=== PATIENT | male | born 1930 | race Caucasian/White ===

== ENCOUNTER 2016-10-12 11:15 | Emergency (ER) | payer OTHER ==
[~2016-10-12] VITALS: Ht 175.3 cm; Wt 67.1 kg
[~2016-10-12 11:15] MED LIST: BRIMONIDINE TAR15 ML BOTH EYES; GLUCOTROL5 MG PO; LEVOTHROID,SYN0.1 MG PO; METFORMIN HCL500 M1 PO; PLAVIX75 MG PO; XALATAN 0.50 DROP/2. BOTH EYES; ZANTAC150 MG PO; ZESTRIL5 MG PO
[2016-10-12 11:51] LABS: POINT-OF-CARE METER ID UU14100415
[2016-10-12 12:33] LABS: HEMATOCRIT 36.2 % (38.0-50.0); MCH 30.5 PG (29.0-34.0); MCHC 33.1 G/DL (30.0-36.0); MCV 91.9 FL (86-99); RBC DIS.WIDTH-CV 12.6 % (11.8-14.6); RBC DIS.WIDTH-SD 42.6 % (39-53); RED BLOOD COUNT 3.94 M/uL (4.00-5.50); WHITE BLOOD COUNT 8.2 K/uL (4.1-10.2)
[2016-10-12 12:45] LABS: CHLORIDE 105 mEq/L (99-109); POTASSIUM 5.8 mEq/L (3.7-5.4); SODIUM 136 mEq/L (136-147)
[2016-10-12 12:47] LABS: GLUCOSE 281 mg/dL (70-99)
[2016-10-12 12:48] LABS: ANION GAP 8 MEQ/L (2-14)
[2016-10-12 12:51] LABS: GFR ESTIMATE (CALCULATED) 47 mL/min/; UREA NITROGEN (BUN) 40 mg/dL (9-23)
[2016-10-12 12:56] LABS: TROP-I INTERPRETATION NEGATIVE; TROPONIN-I < 0.01 ng/mL (0.0-0.30)
[2016-10-12 13:27] LABS: ADD MIUA? NO; BILIRUBIN NEGATIVE; BLOOD NEGATIVE; COLOR YELLOW ((YELLOW)); GLUCOSE (STRIP) >=500; KETONES NEGATIVE; LEUKOCYTES NEGATIVE; NITRITE NEGATIVE; PROTEIN (STRIP) NEGATIVE; SPECIFIC GRAVITY 1.006 (1.000-1.030); UCUL ADDED? NO; UROBILINOGEN 0.2 MG/DL (0.2-1.0)
[2016-10-12 13:43] LABS: IMM.PLATELET FRACTION 10.2 (1-7); MEAN PLAT.VOLUME 12.3 uM^3 (9.0-12.4); PLAT.SUFFICIENCY DECREASED; PLATELET COUNT 46 K/uL (156-360)
[2016-10-12 14:55] VITALS: BP 145/66
== END 2016-10-12 14:56 | disposition home or self-care (01) ==
LOC: EME 11:15
PROVIDERS: Emergency Medicine
DX: E11.65 Type 2 diabetes mellitus with hyperglycemia (principal); D69.6 Thrombocytopenia, unspecified; E87.5 Hyperkalemia; R42 Dizziness and giddiness; I10 Essential (primary) hypertension; I45.10 Unspecified right bundle-branch block; E03.9 Hypothyroidism, unspecified; Z95.0 Presence of cardiac pacemaker; Z79.84 Long term (current) use of oral hypoglycemic drugs; Z79.02 Long term (current) use of antithrombotics/antiplatelets; Z87.891 Personal history of nicotine dependence
CPT/HCPCS: 80048; 81003; 82948; 84484; 85027; 93005; 99281; 99285

== ENCOUNTER 2017-08-09 12:22 | Inpatient (IN) | payer OTHER ==
[~2017-08-09] VITALS: Ht 167.6 cm; Wt 58.1 kg
[~2017-08-09 12:22] MED LIST changes: +ALPHAGAN P100 DROP/1 BOTH EYES; -BRIMONIDINE TAR15 ML BOTH EYES; +GLUCOTROL10 MG PO; -GLUCOTROL5 MG PO; -LEVOTHROID,SYN0.1 MG PO; +SYNTHROID50 MCG PO; -XALATAN 0.50 DROP/2. BOTH EYES; +XALATAN2.5 ML BOTH EYES
[2017-08-09 14:31] LABS: BASOPHIL (%) 0.2 % (0-1); EOSINOPHIL (%) 0.1 % (0-5); HEMATOCRIT 34.5 % (38.0-50.0); HEMOGLOBIN 11.2 G/DL (12.5-16.6); IMMATURE GRANULOCYTE (%) 0.6 % (0.0-0.7); LYMPHOCYTE (%) 5.7 % (15-42); LYMPHOCYTE COUNT 0.7 K/uL (1.0-2.8); MCH 27.4 PG (29.0-34.0); MCHC 32.5 G/DL (30.0-36.0); MCV 84.4 FL (86-99); MONOCYTE COUNT 1.3 K/uL (0-0.8); NEUTROPHIL (%) 83.4 % (45-76); NEUTROPHIL COUNT 10.5 K/uL (1.8-6.4); PLATELET COUNT 171 K/uL (156-360); RBC DIS.WIDTH-CV 14.5 % (11.8-14.6); RBC DIS.WIDTH-SD 44.2 % (39-53); RED BLOOD COUNT 4.09 M/uL (4.00-5.50); WHITE BLOOD COUNT 12.6 K/uL (4.1-10.2)
[2017-08-09 14:38] LABS: INTER. NORMALIZED RATIO 1.2
[2017-08-09 14:40] LABS: PTT 23.9 SEC (25-37)
[2017-08-09 14:44] LABS: APPEARANCE CLOUDY ((CLEAR)); BILIRUBIN NEGATIVE; BLOOD NEGATIVE; COLOR YELLOW ((YELLOW)); GLUCOSE (STRIP) >=500; KETONES 5; LEUKOCYTES LARGE; NITRITE NEGATIVE; PROTEIN (STRIP) NEGATIVE; SPECIFIC GRAVITY 1.012 (1.000-1.030); UROBILINOGEN 0.2 MG/DL (0.2-1.0)
[2017-08-09 14:51] LABS: TROP-I INTERPRETATION NEGATIVE; TROPONIN-I 0.02 ng/mL (0.0-0.30)
[2017-08-09 14:53] LABS: AMPHETAMINE NEGATIVE (500 ng/mL); BARBITURATES NEGATIVE (200 ng/mL); BENZODIAZEPINES NEGATIVE (150 ng/mL); BUPRENORPHINE NEGATIVE (10 ng/mL); COCAINE NEGATIVE (150 ng/mL); METHADONE NEGATIVE (200 ng/mL); METHAMPHETAMINE NEGATIVE (500 ng/mL); OPIATES (MORPHINE) NEGATIVE (100 ng/mL); OXYCODONE NEGATIVE (100 ng/mL); PHENCYCLIDINE NEGATIVE (25 ng/mL); PROPOXYPHENE NEGATIVE (300 ng/mL); THC CANNABINOIDS NEGATIVE (50 ng/mL); TRICYCLIC ANTIDEPRESSANTS NEGATIVE (300 ng/mL)
[2017-08-09 14:59] LABS: BACTERIA 3+ /HPF; EPITHELIAL CELLS NONE SEEN /HPF; MUCUS NONE SEEN /LPF; RED BLOOD CELLS 0-5 /HPF (0-5); UCUL ADDED? YES; WHITE BLOOD CELLS 30-40 /HPF (0-5)
[2017-08-09 15:06] LABS: ALBUMIN 2.8 g/dL (3.2-4.8); CHLORIDE 100 mEq/L (99-109); MAGNESIUM 1.9 mg/dL (1.3-2.7); POTASSIUM 4.5 mEq/L (3.7-5.4); SODIUM 133 mEq/L (136-147)
[2017-08-09 15:10] LABS: TOTAL BILIRUBIN 0.4 mg/dL (0.0-1.0)
[2017-08-09 15:12] LABS: ALKALINE PHOSPHATASE 83 IU/L (3-129); CREATININE 1.4 mg/dL (0.6-1.3); GFR ESTIMATE (CALCULATED) 51 mL/min/ (58.99-99999)
[2017-08-09 15:13] LABS: AST (GOT) 22 IU/L (2-34); UREA NITROGEN (BUN) 42 mg/dL (9-23)
[2017-08-09 15:15] LABS: ALT (GPT) 19 IU/L (3-49)
[2017-08-09 15:20] LABS: GLUCOSE 468 mg/dL (70-99)
[2017-08-09] MEDS ORDERED: MELATIN3 MG PO (17:17)
[2017-08-09] MEDS ORDERED: FLOMAX0.4 MG PO (17:17)
[2017-08-09] MEDS ORDERED: FERGON324 MG PO (17:18)
[2017-08-09] MEDS ORDERED: BAYER CHEWABLE81 MG PO (17:19)
[2017-08-09] MEDS ORDERED: VITAMIN B122500 MCG PO (17:19)
[2017-08-09] MEDS ORDERED: SANTYL30 GM TP (17:19)
[2017-08-09] MEDS ORDERED: COLACE100 MG PO (17:19)
[2017-08-09] MEDS ORDERED: LANTUS 10100 UNITS/ SC (17:22)
[2017-08-09 17:27] LABS: TROP-I INTERPRETATION NEGATIVE; TROPONIN-I 0.03 ng/mL (0.0-0.30)
[2017-08-09 17:53] LABS: THYROTROPIN (TSH) 0.67 MIU/L (0.4-5.5)
[2017-08-09 19:02] LABS: GLUCOSE 388 mg/dL (70-99)
[2017-08-09 20:07] LABS: CHLORIDE 105 mEq/L (99-109); POTASSIUM 4.3 mEq/L (3.7-5.4); SODIUM 135 mEq/L (136-147)
[2017-08-09 20:09] LABS: GLUCOSE 383 mg/dL (70-99)
[2017-08-09 20:13] LABS: CREATININE 1.2 mg/dL (0.6-1.3); GFR ESTIMATE (CALCULATED) > 59 mL/min/ (58.99-99999); PHOSPHORUS 2.4 mg/dL (2.5-4.9)
[2017-08-09 20:14] LABS: UREA NITROGEN (BUN) 35 mg/dL (9-23)
[2017-08-09 20:15] VITALS: BP 170/89
[2017-08-09 21:00] VITALS: BP 158/66
[2017-08-09 21:56] LABS: GLUCOSE 328 mg/dL (70-99)
[2017-08-09 22:00] VITALS: BP 155/61
[2017-08-09 23:00] VITALS: BP 165/56
[2017-08-10] VITALS (21 sets, daily range): BP systolic 74–197; BP diastolic 45–125
[2017-08-10 00:59] LABS: CHLORIDE 107 mEq/L (99-109); POTASSIUM 4.1 mEq/L (3.7-5.4); SODIUM 137 mEq/L (136-147)
[2017-08-10 01:01] LABS: GLUCOSE 177 mg/dL (70-99)
[2017-08-10 01:05] LABS: GFR ESTIMATE (CALCULATED) > 59 mL/min/ (58.99-99999); PHOSPHORUS 1.8 mg/dL (2.5-4.9)
[2017-08-10 01:06] LABS: UREA NITROGEN (BUN) 31 mg/dL (9-23)
[2017-08-10 05:13] LABS: CHLORIDE 109 mEq/L (99-109); SODIUM 140 mEq/L (136-147)
[2017-08-10 05:15] LABS: GLUCOSE 122 mg/dL (70-99)
[2017-08-10 05:19] LABS: GFR ESTIMATE (CALCULATED) > 59 mL/min/ (58.99-99999)
[2017-08-10 05:20] LABS: UREA NITROGEN (BUN) 28 mg/dL (9-23)
[2017-08-10 09:23] LABS: CHLORIDE 108 MEQ/L (99-109); CREATININE 0.9 MG/DL (0.6-1.3); GFR ESTIMATE (CALCULATED) > 59 mL/min/ (58.99-99999); GLUCOSE 146 mg/dL (70-99); PHOSPHORUS 3.1 mg/dL (2.5-4.9); POTASSIUM 3.8 MEQ/L (3.7-5.4); SODIUM 139 MEQ/L (136-147); UREA NITROGEN (BUN) 24 mg/dL (9-23)
[2017-08-10 12:12] LABS: HEMOGLOBIN A1c (GLYCOHEMOGLOB) 9.3 % (Below 5.7)
[2017-08-10 12:15] LABS: CHLORIDE 108 MEQ/L (99-109); CREATININE 0.9 MG/DL (0.6-1.3); GFR ESTIMATE (CALCULATED) > 59 mL/min/ (58.99-99999); GLUCOSE 172 mg/dL (70-99); POTASSIUM 3.7 MEQ/L (3.7-5.4); SODIUM 139 MEQ/L (136-147); UREA NITROGEN (BUN) 21 mg/dL (9-23)
[2017-08-10 16:57] LABS: CHLORIDE 108 MEQ/L (99-109); CREATININE 0.9 MG/DL (0.6-1.3); GFR ESTIMATE (CALCULATED) > 59 mL/min/ (58.99-99999); GLUCOSE 167 mg/dL (70-99); PHOSPHORUS 2.3 mg/dL (2.5-4.9); POTASSIUM 4.2 MEQ/L (3.7-5.4); SODIUM 139 MEQ/L (136-147); UREA NITROGEN (BUN) 20 mg/dL (9-23)
[2017-08-11] VITALS (12 sets, daily range): BP systolic 150–191; BP diastolic 61–78
[2017-08-12] VITALS (21 sets, daily range): BP systolic 96–188; BP diastolic 46–86
[2017-08-12 10:25] LABS: BASOPHIL (%) 0.4 % (0-1); BASOPHIL COUNT 0.1 K/uL (0-0.1); EOSINOPHIL (%) 1.7 % (0-5); EOSINOPHIL COUNT 0.2 K/uL (0-0.3); HEMATOCRIT 28.4 % (38.0-50.0); IMMATURE GRANULOCYTE (%) 0.5 % (0.0-0.7); LYMPHOCYTE COUNT 1.4 K/uL (1.0-2.8); MCH 26.7 PG (29.0-34.0); MCHC 31.7 G/DL (30.0-36.0); MCV 84.3 FL (86-99); MONOCYTE (%) 11.5 % (3-12); MONOCYTE COUNT 1.3 K/uL (0-0.8); NEUTROPHIL (%) 73.9 % (45-76); NEUTROPHIL COUNT 8.4 K/uL (1.8-6.4); PLATELET COUNT 132 K/uL (156-360); RBC DIS.WIDTH-CV 15.1 % (11.8-14.6); RBC DIS.WIDTH-SD 46.3 % (39-53); RED BLOOD COUNT 3.37 M/uL (4.00-5.50); WHITE BLOOD COUNT 11.4 K/uL (4.1-10.2)
[2017-08-12 11:58] LABS: INTER. NORMALIZED RATIO 1.3
[2017-08-12 12:00] LABS: PTT 24.8 SEC (25-37)
[2017-08-12 12:23] LABS: CHLORIDE 108 MEQ/L (99-109); CREATININE 0.8 MG/DL (0.6-1.3); GFR ESTIMATE (CALCULATED) > 59 mL/min/ (58.99-99999); GLUCOSE 278 mg/dL (70-99); MAGNESIUM 1.8 mg/dl (1.3-2.7); PHOSPHORUS 1.8 mg/dL (2.5-4.9); POTASSIUM 3.3 MEQ/L (3.7-5.4); SODIUM 141 MEQ/L (136-147); UREA NITROGEN (BUN) 20 mg/dL (9-23)
[2017-08-12 17:17] LABS: HEMATOCRIT 28.7 % (38.0-50.0); HEMOGLOBIN 9.1 G/DL (12.5-16.6); MCH 26.7 PG (29.0-34.0); MCHC 31.7 G/DL (30.0-36.0); MCV 84.2 FL (86-99); PLATELET COUNT 106 K/uL (156-360); RBC DIS.WIDTH-CV 14.9 % (11.8-14.6); RBC DIS.WIDTH-SD 45.5 % (39-53); RED BLOOD COUNT 3.41 M/uL (4.00-5.50); WHITE BLOOD COUNT 11.3 K/uL (4.1-10.2)
[2017-08-13] VITALS (16 sets, daily range): BP systolic 128–182; BP diastolic 57–89
[2017-08-14 03:17] VITALS: BP 154/70
[2017-08-14 06:40] LABS: BASOPHIL (%) 0.3 % (0-1); EOSINOPHIL (%) 2.6 % (0-5); EOSINOPHIL COUNT 0.2 K/uL (0-0.3); HEMATOCRIT 27.3 % (38.0-50.0); HEMOGLOBIN 8.8 G/DL (12.5-16.6); IMMATURE GRANULOCYTE (%) 0.6 % (0.0-0.7); LYMPHOCYTE (%) 15.8 % (15-42); LYMPHOCYTE COUNT 1.4 K/uL (1.0-2.8); MCH 27.1 PG (29.0-34.0); MCHC 32.2 G/DL (30.0-36.0); MONOCYTE (%) 11.6 % (3-12); NEUTROPHIL (%) 69.1 % (45-76); PLATELET COUNT 121 K/uL (156-360); RBC DIS.WIDTH-CV 14.8 % (11.8-14.6); RBC DIS.WIDTH-SD 45.1 % (39-53); RED BLOOD COUNT 3.25 M/uL (4.00-5.50); WHITE BLOOD COUNT 8.7 K/uL (4.1-10.2)
[2017-08-14 07:03] LABS: CHLORIDE 108 MEQ/L (99-109); CREATININE 0.8 MG/DL (0.6-1.3); GFR ESTIMATE (CALCULATED) > 59 mL/min/ (58.99-99999); POTASSIUM 2.9 MEQ/L (3.7-5.4); SODIUM 140 MEQ/L (136-147); UREA NITROGEN (BUN) 12 mg/dL (9-23)
[2017-08-14 07:04] LABS: GLUCOSE 100 mg/dL (70-99)
[2017-08-14 11:22] VITALS: BP 160/70
[2017-08-14 16:45] VITALS: BP 158/67
[2017-08-14 19:57] VITALS: BP 164/70
[2017-08-14 23:45] VITALS: BP 166/74
[2017-08-15 04:00] VITALS: BP 133/60
[2017-08-15 07:17] LABS: CHLORIDE 109 MEQ/L (99-109); CREATININE 0.8 MG/DL (0.6-1.3); GFR ESTIMATE (CALCULATED) > 59 mL/min/ (58.99-99999); SODIUM 140 MEQ/L (136-147); UREA NITROGEN (BUN) 11 mg/dL (9-23)
[2017-08-15 07:23] LABS: GLUCOSE 67 mg/dL (70-99); POTASSIUM 3.5 MEQ/L (3.7-5.4)
[2017-08-15 07:59] VITALS: BP 117/59
[2017-08-15 17:01] VITALS: BP 167/73
[2017-08-15 19:45] VITALS: BP 163/71
[2017-08-15 23:52] VITALS: BP 146/66
[2017-08-16 04:10] VITALS: BP 137/91
[2017-08-16 08:05] VITALS: BP 123/58
[2017-08-16 10:45] LABS: BASOPHIL (%) 0.2 % (0-1); EOSINOPHIL (%) 0.9 % (0-5); EOSINOPHIL COUNT 0.1 K/uL (0-0.3); HEMATOCRIT 27.3 % (38.0-50.0); HEMOGLOBIN 8.6 G/DL (12.5-16.6); IMMATURE GRANULOCYTE (%) 0.6 % (0.0-0.7); LYMPHOCYTE (%) 8.6 % (15-42); LYMPHOCYTE COUNT 1.2 K/uL (1.0-2.8); MCH 27.4 PG (29.0-34.0); MCHC 31.5 G/DL (30.0-36.0); MCV 86.9 FL (86-99); MONOCYTE (%) 11.1 % (3-12); MONOCYTE COUNT 1.5 K/uL (0-0.8); NEUTROPHIL (%) 78.6 % (45-76); NEUTROPHIL COUNT 10.9 K/uL (1.8-6.4); RBC DIS.WIDTH-CV 15.4 % (11.8-14.6); RBC DIS.WIDTH-SD 47.5 % (39-53); RED BLOOD COUNT 3.14 M/uL (4.00-5.50); WHITE BLOOD COUNT 13.8 K/uL (4.1-10.2)
[2017-08-16 11:20] LABS: ALBUMIN 1.9 G/DL (3.2-4.8); ALKALINE PHOSPHATASE 71 IU/L (3-129); ALT (GPT) 22 IU/L (3-49); AST (GOT) 29 IU/L (2-34); CHLORIDE 101 MEQ/L (99-109); CREATININE 0.8 MG/DL (0.6-1.3); GFR ESTIMATE (CALCULATED) > 59 mL/min/ (58.99-99999); TOTAL BILIRUBIN 0.7 MG/DL (0.0-1.0); TOTAL PROTEIN 5.9 G/DL (6.4-8.3); UREA NITROGEN (BUN) 14 mg/dL (9-23)
[2017-08-16 11:24] LABS: GLUCOSE 308 mg/dL (70-99); POTASSIUM 4.4 MEQ/L (3.7-5.4); SODIUM 131 MEQ/L (136-147)
[2017-08-16 11:42] LABS: PLAT.SUFFICIENCY DECREASED; PLATELET COUNT 130 K/uL (156-360)
[2017-08-16 14:09] VITALS: BP 141/63
[2017-08-16 16:12] VITALS: BP 134/60
[2017-08-16 20:00] VITALS: BP 164/72
[2017-08-17] VITALS (7 sets, daily range): BP systolic 130–157; BP diastolic 57–70
[2017-08-17 06:43] LABS: BASOPHIL (%) 0.2 % (0-1); EOSINOPHIL (%) 1.4 % (0-5); EOSINOPHIL COUNT 0.2 K/uL (0-0.3); HEMATOCRIT 30.2 % (38.0-50.0); HEMOGLOBIN 9.6 G/DL (12.5-16.6); IMMATURE GRANULOCYTE (%) 0.6 % (0.0-0.7); LYMPHOCYTE (%) 11.8 % (15-42); LYMPHOCYTE COUNT 1.3 K/uL (1.0-2.8); MCH 26.5 PG (29.0-34.0); MCHC 31.8 G/DL (30.0-36.0); MCV 83.4 FL (86-99); MONOCYTE (%) 13.7 % (3-12); MONOCYTE COUNT 1.5 K/uL (0-0.8); NEUTROPHIL (%) 72.3 % (45-76); PLATELET COUNT 156 K/uL (156-360); RBC DIS.WIDTH-CV 15.1 % (11.8-14.6); RBC DIS.WIDTH-SD 45.5 % (39-53); RED BLOOD COUNT 3.62 M/uL (4.00-5.50); WHITE BLOOD COUNT 11.1 K/uL (4.1-10.2)
[2017-08-17 07:07] LABS: ALKALINE PHOSPHATASE 72 IU/L (3-129); ALT (GPT) 26 IU/L (3-49); AST (GOT) 40 IU/L (2-34); CHLORIDE 103 MEQ/L (99-109); CREATININE 0.8 MG/DL (0.6-1.3); DIRECT BILIRUBIN 0.2 mg/dL (0.0-0.3); GFR ESTIMATE (CALCULATED) > 59 mL/min/ (58.99-99999); POTASSIUM 3.9 MEQ/L (3.7-5.4); SODIUM 135 MEQ/L (136-147); TOTAL BILIRUBIN 0.7 MG/DL (0.0-1.0); TOTAL PROTEIN 6.2 G/DL (6.4-8.3); UREA NITROGEN (BUN) 17 mg/dL (9-23)
[2017-08-17 07:08] LABS: GLUCOSE 99 mg/dL (70-99)
[2017-08-17 14:31] LABS: IRON 14 MCG/DL (35-150); TRANSFERRIN (TIBC) 141.3 mg/dL (215-380); TRANSFERRIN SATUR. 10 % (20-55)
[2017-08-17 14:46] LABS: FERRITIN 186 NG/ML (22-322)
[2017-08-17 14:52] LABS: FOLIC ACID (FOLATE) 16.9 NG/ML (5.0-22.0)
[2017-08-18 03:40] VITALS: BP 146/67
[2017-08-18 07:27] VITALS: BP 130/77
[2017-08-18 11:52] VITALS: BP 149/67
[2017-08-18 16:14] VITALS: BP 151/66
[2017-08-18 19:51] VITALS: BP 136/65
[2017-08-18 23:12] VITALS: BP 142/63
[2017-08-19 04:17] VITALS: BP 133/60
[2017-08-19 08:57] VITALS: BP 121/56
[2017-08-19] MEDS ORDERED: AMLODIPINE BESY10 MG PO (10:37)
[2017-08-19 11:12] VITALS: BP 119/56
== END 2017-08-19 13:17 | DRG 82 ==
LOC: EME → EDBD 12:22 → 4WEST 17:48 → 3EAST 17:48 → EDOF 17:48 → ENRESERV 17:51 → 4WEST 20:14 → ENRESERV 08-13 14:08 → 3EAST 08-13 16:34
PROVIDERS: Emergency Medicine; Hospitalist; Internal Medicine Critical Care Medicine; Specialist; Student in an Organized Health Care Education/Training Program
DX: S06.6X9A Traumatic subarachnoid hemorrhage with loss of consciousness of unspecified duration, initial encounter (principal); E11.10 Type 2 diabetes mellitus with ketoacidosis without coma; G93.40 Encephalopathy, unspecified; E87.1 Hypo-osmolality and hyponatremia; L89.130 Pressure ulcer of right lower back, unstageable; I48.0 Paroxysmal atrial fibrillation; N39.0 Urinary tract infection, site not specified; B96.89 Other specified bacterial agents as the cause of diseases classified elsewhere; F03.90 Unspecified dementia, unspecified severity, without behavioral disturbance, psychotic disturbance, mood disturbance, and anxiety; E87.6 Hypokalemia; S06.2X9A Diffuse traumatic brain injury with loss of consciousness of unspecified duration, initial encounter; S01.01XA Laceration without foreign body of scalp, initial encounter; S41.112A Laceration without foreign body of left upper arm, initial encounter; W18.30XA Fall on same level, unspecified, initial encounter; I10 Essential (primary) hypertension; E03.9 Hypothyroidism, unspecified; D50.9 Iron deficiency anemia, unspecified; Z60.2 Problems related to living alone; Y92.524 Gas station as the place of occurrence of the external cause; Z91.81 History of falling; Z95.0 Presence of cardiac pacemaker; Z79.84 Long term (current) use of oral hypoglycemic drugs; Z79.02 Long term (current) use of antithrombotics/antiplatelets; Z79.82 Long term (current) use of aspirin; Z87.891 Personal history of nicotine dependence
CPT/HCPCS: 70450; 71045; 72125; 73080; 80048; 80048 91; 80053; 80076; 81003; 82010; 82607; 82728; 82746; 82947 91; 82948; 83036; 83540; 83605; 83735; 84100; 84443; 84466; 84484; 85025; 85027; 85610; 85730; 87040; 87077; 87086; 87186; 87641; 92523 GN; 92526 GN; 93005; 94760; 94799; 97530 GO; 97530 GP; 99281; 99285; A6214; G0515 GN; J0692; J0696; J1630; J1815; J1953; J1956; J2060; J2250; J3370; J3475; J3480; J7030; J7040; J7050; J7120